=== PATIENT | male | born 1965 | race Hispanic/Latino ===

== ENCOUNTER 2020-02-01 17:29 | Emergency (ER) | payer SELFPAY ==
[2020-02-01] MEDS ORDERED: Acetaminophen 500 MG TAB ONE (17:54)
--- NOTE | 2020-02-01 18:31 | CT ---
CT OF THE BRAIN WITHOUT CONTRAST: 02/01/20 COMPARISON: 03/15/15. HISTORY: Elevated blood pressure and blurry vision. Headache. TECHNIQUE: Multiple contiguous axial images were obtained in a CT of the brain without contrast. FINDINGS: The brain is normal in morphology and attenuation without focal lesions or confluent areas of infarct ion. There is no evidence of hydrocephalus, intracranial hemorrhage, or extra-axial fluid collection. The calvarium and overlying soft tissues are unremarkable. The visualized paranasal sinuses and masto id air cells are well aerated. IMPRESSION: No evidence of acute intracranial abnormality. POS: C
== END 2020-02-01 17:57 | disposition home or self-care (01) ==
LOC: ERS 17:29
DX: I10 Essential (primary) hypertension (principal)
CPT/HCPCS: 70450; 93005